=== PATIENT | female | born 1950 | race Caucasian/White ===

== ENCOUNTER → 2024-01-30 11:00 | Outpatient (REF) | payer MEDICARE, SELFPAY | LOC: WDC 11:00 | PROVIDERS: ATTENDING PHYSICIAN Internal Medicine | DX: Z12.31 Encounter for screening mammogram for malignant neoplasm of breast (principal) | CPT/HCPCS: 77063; 77067 ==

== ENCOUNTER → 2025-02-03 15:19 | Outpatient (REF) | payer MEDICARE, SELFPAY | LOC: WDC 15:19 | PROVIDERS: ATTENDING PHYSICIAN Internal Medicine | DX: Z12.31 Encounter for screening mammogram for malignant neoplasm of breast (principal) | CPT/HCPCS: 77063; 77067 ==